=== PATIENT | male | born 1980 | race Caucasian/White ===

== ENCOUNTER 2016-06-03 14:45 | Emergency (ER) | payer BC, OTHER ==
[2016-06-03] MEDS ORDERED: Sodium Chloride 0.9% 10 ML Syringe FLUSH PRN (14:52)
[2016-06-03] MEDS ORDERED: Ketorolac 30 MG/ML SDV IVPUSH ONE (14:53)
[2016-06-03] MEDS ORDERED: Sodium Chloride 0.9% 1,000 ML IV SCH ×2 (15:00→18:45)
[2016-06-03] MEDS ORDERED: Iopamidol 612 MG/ML 100 ML Bottle IVPUSH ONE (15:15)
[2016-06-03] MEDS ORDERED: Sodium Chloride 0.9% 100 ML IV ONE (15:15)
[2016-06-03 15:57] VITALS: BP 139/80
[2016-06-03 16:15] LABS: CHLORIDE,CL 101 mmol/L (98-107); SODIUM,NA 138 mmol/L (136-145)
--- NOTE | 2016-06-03 16:44 | EDM.PDOC ---
ED HPI GENERAL MEDICAL PROBLEM - General Chief Complaint: General Stated Complaint: FEVER/ACHES Time Seen by Provider: 06/03/16 14:50 Source of Information: Reports: Patient, Family, RN, RN notes reviewed History Limitations: Reports: No limitations - History of Present Illness INITIAL COMMENTS - FREE TEXT/NARRATIVE: Patient presents to the ED at [facility] complaining of body aches, headache , chest pain, and SOB for the past couple days. Patient states he has a history of AFib and implanted heart monitor. He does have a history of seizures. He admits to a history of meth use. No contacts with similar symptoms. No N/V/D. No focal neurological deficits. Patient denies any other URI symptoms. Onset Date: 06/01/16 Duration: Waxing/waning Location: Reports: head, chest, generalized Quality: Reports: Ache Severity: severe Improves with: Reports: Rest Worsens with: Reports: Movement Context: Denies: Activity, Exercise, Lifting, Sick contact, Trauma Associated Symptoms: Reports: chest pain, headaches, shortness of breath. Denies: cough w sputum, fever/chills, nausea/vomiting, seizure Headache Pain Score (Numeric/FACES): 9 - Related Data Allergies Allergy/AdvReac Type Severity Reaction Status Date / Time ketorolac [From Toradol] Allergy Other Verified 06/03/16 15:20 contrast dye Allergy Other Uncoded 06/03/16 15:20 Home Meds: Home Meds Divalproex Sodium [Depakote ER] 1,000 mg DAILY 06/03/16 [History] Past Medical History Cardiovascular History: Reports: Afib, Other (see below) Other Cardiovascular History: link monitor in chest? Musculoskeletal History: Reports: Back pain, chronic, Other (see below) Other Musculoskeletal History: sciatica. bone spurs in back. meniscus tear in knee. bakers cyst to back of knees Neurological History: Reports: Seizure Social & Family History - Tobacco Use Smoking Status *Q: Unknown Ever Smoked - Recreational Drug Use Recreational Drug Use: Yes Recreational Drug Type: Reports: Cocaine, Methamphetamine, Other (see below) Other Recreational Drug Type: narcotics Recreational Drug Use Frequency: Not Used In Over 6 Months ED ROS GENERAL - Review of Systems Review Of Systems: See Below Constitutional: Reports: malaise. Denies: fever, chills, weakness, decreased appetite HEENT: Reports: No symptoms Respiratory: Reports: Shortness of Breath, Pleuritic Chest Pain. Denies: Cough , Sputum Cardiovascular: Reports: Chest pain. Denies: Edema, Lightheadedness, Palpitations GI/Abdominal: Denies: Abdominal pain, Diarrhea, Nausea, Vomiting Musculoskeletal: Reports: joint pain (generalized), muscle pain, muscle stiffness Skin: Reports: no symptoms Neurological: Reports: Headache. Denies: Dizziness, Numbness, Paresthesia, Tingling ED EXAM, GENERAL - Physical Exam Exam: See Below Exam Limited By: No limitations General Appearance: alert, mild distress Eye Exam: bilateral eye: EOMI, normal inspection, PERRL Ears: normal external exam, normal canal, hearing grossly normal, normal TMs Ear Exam: bilateral ear: TM normal Nose: normal inspection, normal mucosa Throat/Mouth: Normal inspection, Normal oropharynx. No: Inflammation Head: atraumatic, normocephalic Neck: supple Respiratory/Chest: no respiratory distress, lungs clear, normal breath sounds Cardiovascular: normal peripheral pulses, no edema, no murmur, tachycardia Peripheral Pulses: 2+: radial (L), radial (R) GI/Abdominal: normal bowel sounds, soft, non tender Extremities: normal inspection Neurological: alert, oriented, normal cognition Skin Exam: Warm, Dry, Intact, Normal color, No rash EKG INTERPRETATION EKG Date: 06/03/16 Time: 14:56 Rhythm: NSR Rate (beats/min): 105 [place]: normal P-wave: present QRS: normal ST-T: normal QT: normal MO/PQ Interval: 0.12 Comparison: NA - no prior EKG EKG Interpretation Comments: 1. Sinus Tachycardia Course - Vital Signs Last Recorded V/S: Last Vital Signs Temp 37.9 C 06/03/16 14:45 Pulse 116 H 06/03/16 14:45 Resp 16 06/03/16 14:45 BP 139/80 06/03/16 14:45 Pulse Ox 99 06/03/16 14:45 - Orders/Labs/Meds Orders: Active Orders 24 hr Category Date Time Status EKG 12 Lead [EKG Documentation Completion] [RC] STAT Care 06/03/16 14:54 Active Chest wo Cont [CT] Stat Exams 06/03/16 15:21 Taken Head wo Cont [CT] Stat Exams 06/03/16 17:19 Taken CULTURE BLOOD [BC] Stat Lab 06/03/16 15:15 Received CULTURE BLOOD [BC] Stat Lab 06/03/16 15:20 Results DRUG SCREEN, URINE [URCHEM] Stat Lab 06/03/16 15:03 Uncollected HEPATITIS PANEL, ACUTE [REF] Stat Lab 06/03/16 18:25 Received HERPES SIMPLEX VIR 1,2 IGG/IGM [REF] Stat Lab 06/03/16 18:25 Received HIV 1/2 AG/AB W/RFLX SUP ASSAY [REF] Stat Lab 06/03/16 18:25 Received PSA-EIA [REF] Stat Lab 06/03/16 18:25 Received RPR [REF] Stat Lab 06/03/16 18:25 Received UA W/MICROSCOPIC [URIN] Stat Lab 06/03/16 15:02 Uncollected Sodium Chloride 0.9% [Normal Saline] 1,000 ml Med 06/03/16 15:00 Active IV ASDIRECTED Sodium Chloride 0.9% [Normal Saline] 1,000 ml Med 06/03/16 18:45 Active IV ASDIRECTED Sodium Chloride 0.9% [Saline Flush] Med 06/03/16 14:52 Active 10 ml FLUSH ASDIRECTED PRN Blood Culture x2 Reflex Set [OM.PC] Stat Oth 06/03/16 14:50 Ordered Peripheral IV Insertion Adult [OM.PC] Routine Oth 06/03/16 14:52 Ordered Medication Orders Sodium Chloride (Normal Saline) 1,000 mls @ 999 mls/hr IV ASDIRECTED BALJIT Last Admin: 06/03/16 15:40 Dose: 999 mls/hr Sodium Chloride (Normal Saline) 1,000 mls @ 999 mls/hr IV ASDIRECTED BALJIT Last Admin: 06/03/16 18:45 Dose: 999 mls/hr Sodium Chloride (Saline Flush) 10 ml FLUSH ASDIRECTED PRN PRN Reason: Keep Vein Open Labs: Laboratory Tests 06/03/16 06/03/16 06/03/16 Range/Units 15:12 15:12 15:12 WBC 10.3 H (4.0-10.0) x10^3/uL RBC 4.29 L (4.5-6.0) x10^6/uL Hgb 13.5 L (14.0-18.0) g/dL Hct 40.8 (40.0-52.0) % MCV 95.1 H (78.0-93.0) fL MCH 31.5 (26.0-32.0) pg MCHC 33.1 (32.0-36.0) g/dL RDW Coeff of Ino 11.7 (10.0-15.0) % Plt Count 244 (130-400) x10^3/uL Neut % (Auto) 85.7 H (50.0-80.0) % Lymph % (Auto) 6.2 L (25.0-50.0) % Love % (Auto) 7.7 (2.0-11.0) % Eos % (Auto) 0.1 (0.0-4.0) % Baso % (Auto) 0.3 (0.2-1.2) % ESR 12 (0-16) mm/hr PT (10.0-12.8) SEC INR (2.0-3.5) D-Dimer, Quantitative (<=0.58) mg/LFEU Sodium 138 (136-145) mmol/L Potassium 3.8 (3.5-5.1) mmol/L Chloride 101 (98-107) mmol/L Carbon Dioxide 28 (21-32) mmol/L BUN 11 (7-18) mg/dL Creatinine 0.9 (0.70-1.30) mg/dL Est Cr Clr Drug Dosing 112.38 mL/min Estimated GFR (MDRD) > 60 Glucose 120 H (74-106) mg/dL Lactic Acid 2.0 (0.4-2.0) mmol/L Calcium 8.7 (8.5-10.1) mg/dL Corrected Calcium 8.70 (8.5-10.1) mg/dL Phosphorus 2.9 (2.6-4.7) mg/dL Magnesium 1.8 (1.8-2.4) mg/dL Total Bilirubin 1.3 H (0.2-1.0) mg/dL AST 10 L (15-37) U/L ALT 17 (16-63) U/L Alkaline Phosphatase 55 (46-116) U/L Creatine Kinase 70 (39-308) U/L Troponin I < 0.017 (<=0.056) ng/mL C-Reactive Protein 4.0 H (<=0.9) mg/dL Total Protein 7.5 (6.4-8.2) g/dL Albumin 4.0 (3.4-5.0) g/dL Globulin 3.5 Albumin/Globulin Ratio 1.14 06/03/16 Range/Units 15:12 WBC (4.0-10.0) x10^3/uL RBC (4.5-6.0) x10^6/uL Hgb (14.0-18.0) g/dL Hct (40.0-52.0) % MCV (78.0-93.0) fL MCH (26.0-32.0) pg MCHC (32.0-36.0) g/dL RDW Coeff of Ino (10.0-15.0) % Plt Count (130-400) x10^3/uL Neut % (Auto) (50.0-80.0) % Lymph % (Auto) (25.0-50.0) % Love % (Auto) (2.0-11.0) % Eos % (Auto) (0.0-4.0) % Baso % (Auto) (0.2-1.2) % ESR (0-16) mm/hr PT 10.4 (10.0-12.8) SEC INR 0.9 L (2.0-3.5) D-Dimer, Quantitative 0.87 H (<=0.58) mg/LFEU Sodium (136-145) mmol/L Potassium (3.5-5.1) mmol/L Chloride (98-107) mmol/L Carbon Dioxide (21-32) mmol/L BUN (7-18) mg/dL Creatinine (0.70-1.30) mg/dL Est Cr Clr Drug Dosing mL/min Estimated GFR (MDRD) Glucose (74-106) mg/dL Lactic Acid (0.4-2.0) mmol/L Calcium (8.5-10.1) mg/dL Corrected Calcium (8.5-10.1) mg/dL Phosphorus (2.6-4.7) mg/dL Magnesium (1.8-2.4) mg/dL Total Bilirubin (0.2-1.0) mg/dL AST (15-37) U/L ALT (16-63) U/L Alkaline Phosphatase (46-116) U/L Creatine Kinase (39-308) U/L Troponin I (<=0.056) ng/mL C-Reactive Protein (<=0.9) mg/dL Total Protein (6.4-8.2) g/dL Albumin (3.4-5.0) g/dL Globulin Albumin/Globulin Ratio Meds: Medications Generic Name Dose Route Start Last Admin Trade Name Freq PRN Reason Stop Dose Admin Sodium Chloride 1,000 mls @ 999 mls/hr 06/03/16 15:00 06/03/16 15:40 Normal Saline IV 999 mls/hr ASDIRECTED BALJIT Administration Sodium Chloride 1,000 mls @ 999 mls/hr 06/03/16 18:45 06/03/16 18:45 Normal Saline IV 999 mls/hr ASDIRECTED BALJIT Administration Sodium Chloride 10 ml 06/03/16 14:52 Saline Flush FLUSH ASDIRECTED PRN Keep Vein Open Discontinued Medications Generic Name Dose Route Start Last Admin Trade Name Muq PRN Reason Stop Dose Admin Hydromorphone HCl 2 mg 06/03/16 18:35 06/03/16 18:51 Dilaudid IVPUSH 06/03/16 18:36 2 mg ONETIME ONE Administration Hydromorphone HCl Confirm 06/03/16 18:58 06/03/16 19:00 Dilaudid Administered 06/03/16 18:59 Not Given Dose 1 mg .ROUTE .STK-MED ONE Sodium Chloride 100 mls @ 2 mls/sec 06/03/16 15:15 Normal Saline IV 06/03/16 15:16 ONETIME ONE Iopamidol 100 ml 06/03/16 15:15 Isovue-300 (61%) IVPUSH 06/03/16 15:16 ONETIME ONE Ketorolac Tromethamine 30 mg 06/03/16 14:53 Toradol IVPUSH 06/03/16 14:54 ONETIME ONE Methylprednisolone Sodium Succinate 125 mg 06/03/16 18:35 06/03/16 18:48 Solu-Medrol IVPUSH 06/03/16 18:36 125 mg ONETIME ONE Administration - Radiology Interpretation Free Text/Narrative:: No acute process seen on CT of Chest without contrast. CT Results Date: 06/03/16 CT Results Time: 16:17 Departure - Departure Time of Disposition: 16:58 Disposition: Home, Self-Care 01 Condition: good Clinical Impression: Body aches, Dehydration, Exposure to STD Fever Qualifiers: Fever type: unspecified Qualified Code(s): R50.9 - Fever, unspecified Instructions: Fever, Adult, Muscle Cramps and Spasms, [id number], Dehydration , Adult, [id number] Referrals: PCP,None [Primary Care Provider] - Forms: ED Department Discharge Additional Instructions: 1. Stay well hydrated and rest 2. May alternate Tylenol/Advil as needed for discomfort 3. Set up and make an appointment to see a Primary Care Provider 4. Follow up with me at the [facility] next week - Problem List Review Problem List Initiated/Reviewed/Updated: Yes - My Orders Last 24 Hours: My Active Orders 06/03/16 14:50 Blood Culture x2 Reflex Set [OM.PC] Stat 06/03/16 14:52 Sodium Chloride 0.9% [Saline Flush] 10 ml FLUSH ASDIRECTED PRN Peripheral IV Insertion Adult [OM.PC] Routine 06/03/16 14:54 EKG 12 Lead [EKG Documentation Completion] [RC] STAT 06/03/16 15:00 Sodium Chloride 0.9% [Normal Saline] 1,000 ml IV ASDIRECTED 06/03/16 15:02 UA W/MICROSCOPIC [URIN] Stat 06/03/16 15:03 DRUG SCREEN, URINE [URCHEM] Stat 06/03/16 15:15 CULTURE BLOOD [BC] Stat 06/03/16 15:20 CULTURE BLOOD [BC] Stat 06/03/16 15:21 Chest wo Cont [CT] Stat 06/03/16 17:19 Head wo Cont [CT] Stat 06/03/16 18:25 HEPATITIS PANEL, ACUTE [REF] Stat HERPES SIMPLEX VIR 1,2 IGG/IGM [REF] Stat HIV 1/2 AG/AB W/RFLX SUP ASSAY [REF] Stat PSA-EIA [REF] Stat RPR [REF] Stat 06/03/16 18:45 Sodium Chloride 0.9% [Normal Saline] 1,000 ml IV ASDIRECTED - Assessment/Plan Last 24 Hours: My Active Orders 06/03/16 14:50 Blood Culture x2 Reflex Set [OM.PC] Stat 06/03/16 14:52 Sodium Chloride 0.9% [Saline Flush] 10 ml FLUSH ASDIRECTED PRN Peripheral IV Insertion Adult [OM.PC] Routine 06/03/16 14:54 EKG 12 Lead [EKG Documentation Completion] [RC] STAT 06/03/16 15:00 Sodium Chloride 0.9% [Normal Saline] 1,000 ml IV ASDIRECTED 06/03/16 15:02 UA W/MICROSCOPIC [URIN] Stat 06/03/16 15:03 DRUG SCREEN, URINE [URCHEM] Stat 06/03/16 15:15 CULTURE BLOOD [BC] Stat 06/03/16 15:20 CULTURE BLOOD [BC] Stat 06/03/16 15:21 Chest wo Cont [CT] Stat 06/03/16 17:19 Head wo Cont [CT] Stat 06/03/16 18:25 HEPATITIS PANEL, ACUTE [REF] Stat HERPES SIMPLEX VIR 1,2 IGG/IGM [REF] Stat HIV 1/2 AG/AB W/RFLX SUP ASSAY [REF] Stat PSA-EIA [REF] Stat RPR [REF] Stat 06/03/16 18:45 Sodium Chloride 0.9% [Normal Saline] 1,000 ml IV ASDIRECTED Plan: Patient refused ABG blood draw. Unable to do CT of chest with contrast due to allergy. Patient refused to give urine sample. Test results explained to patient.
[2016-06-03] MEDS ORDERED: methylPREDNISolone Sodium Succinate 125 MG/2 ML SDV IVPUSH ONE (18:35)
[2016-06-03] MEDS ORDERED: HYDROmorphone 1 MG/ML Syringe IVPUSH ONE (18:35)
[2016-06-03] MEDS ORDERED: HYDROmorphone 1 MG/ML Syringe ONE (18:58)
[2016-06-03] MEDS ORDERED: Furosemide 40 MG/4 ML VIAL IVPUSH ONE (20:32)
== END 2016-06-03 21:25 | disposition home or self-care (01) ==
LOC: VM.ED 14:45
DX: E86.0 Dehydration (principal); R50.9 Fever, unspecified; R07.9 Chest pain, unspecified; R51 Headache; I48.91 Unspecified atrial fibrillation; Z20.2 Contact with and (suspected) exposure to infections with a predominantly sexual mode of transmission; Z88.8 Allergy status to other drugs, medicaments and biological substances
CPT/HCPCS: 36415; 70450; 71250; 80053; 80074; 80305; 81001; 82550; 83605; 83735; 84100; 84153; 84484; 85025; 85379; 85610; 85652; 86140; 86592; 86694; 86695; 86696; 87040; 87804; 93005; 96365; 96366; 96375; 99284; G0475; G0480; J1170; J1940; J2930; J7030